=== PATIENT | male | born 2000 | race Native Hawaiian/Other Pacific Islander ===

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

== ENCOUNTER 2021-11-11 19:31 | Emergency (ER) | payer SELFPAY ==
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
[2021-11-12 06:26] VITALS: BP 132/76
== END 2021-11-12 06:25 | disposition home or self-care (01) ==
LOC: ED 19:31
DX: S20.212A Contusion of left front wall of thorax, initial encounter (principal); V89.2XXA Person injured in unspecified motor-vehicle accident, traffic, initial encounter; Y93.89 Activity, other specified; Y92.89 Other specified places as the place of occurrence of the external cause; Y99.8 Other external cause status
CPT/HCPCS: 99283